=== PATIENT | female | born 1955 | race Caucasian/White ===

== ENCOUNTER 2019-10-06 00:56 | Outpatient (CLI) | payer MEDICARE, OTHER, SELFPAY ==
--- NOTE | 2019-10-06 10:11 | DI.MAMMO_ITS ---
EXAM: MG MAMMO SCREENING CLINICAL HISTORY: SCREENING, DIFFUSE CYSTIC MASTOPATHY OF UNSPECIFIED BREAST, N60.19. TECHNIQUE: Full field digital CC and MLO mammographic images were obtained with 3D tomosynthesis and utilizing computer aided detection (CAD). COMPARISON: . 2014 through 2018 from [facility] in [facility]. FINDINGS: Breast Density - Category C - Heterogeneously dense which decreases the sensitivity of the mammogram. Masses/Architectural Distortion: No suspicious masses are identified. Again noted are multiple bilat eral circumscribed nodules, consistent with cysts.. Microcalcifications: No suspicious pleomorphic-type calcifications are seen. Skin Thickening/Nipple Retraction: None. Axilla: Unremarkable. IMPRESSION: 1. BI-RADS Cat 2 - Benign Findings. No significant interval change with no specific features of bing gnancy noted. 2. Unless there is more urgent need, screening mammography is recommended, as per [employer] guidelines. Breast Density - Category C - Heterogeneously dense. BI-RADS Cat 2 - Benign Findings. A negative radiographic report should not delay biopsy if a dominant or clinically suspicious mass is present. Up to ten percent of cancers are not identified on mammography. A negative report may reinforce clinical impression. Adenosis and dense breasts may obscure an underlying neoplasm. False positive reports average 6 to 10%. Patient will receive a letter notifying them of these results.
== END 2019-10-06 01:16 ==
PROVIDERS: Visit Provider Orthopaedic Surgery
DX: N60.19 Diffuse cystic mastopathy of unspecified breast (principal); N60.11 Diffuse cystic mastopathy of right breast; N60.12 Diffuse cystic mastopathy of left breast; Z12.31 Encounter for screening mammogram for malignant neoplasm of breast
CPT/HCPCS: 77063; 77067

== ENCOUNTER 2019-11-06 01:31 | Outpatient (CLI) | payer MEDICARE, OTHER, SELFPAY ==
--- NOTE | 2019-11-06 14:04 | DI.DEXA_ITS ---
EXAM: XR DEXA BONE DENSITY W/WO SUDHAKAR INDICATION: OTHER DISORDER OF BONE DENSITY AND STRUCTURE, M85.88. COMPARISON: No exams were available for comparison TECHNIQUE: 2D digital imaging was performed. FINDINGS: Lateral view of the spine shows no compression deformities. Evaluation of the left hip shows a total T-score of -1.6 and a Z-score of -0.3. This is consistent w ith osteopenia and an increased fracture risk. Evaluation of the lumbar spine shows a total T-score of -2.0 and a Z-score of -0.1. This is also con sistent with osteopenia and an increased fracture risk. IMPRESSION: Osteopenia of the lumbar spine and left hip.
== END 2019-11-06 01:51 ==
PROVIDERS: Visit Provider Nurse Practitioner Family
DX: M85.88 Other specified disorders of bone density and structure, other site (principal)
CPT/HCPCS: 77080

== ENCOUNTER 2020-07-14 13:45 | Outpatient (REF) | payer MEDICARE, OTHER, SELFPAY ==
[2020-07-16 22:36] LABS: Patient Race White; SARS-CoV-2 RNA Undetected (Undetected); SARS-CoV-2 Specimen Source Nasal
== END 2020-07-14 14:05 ==
LOC: NCHCN 13:45
PROVIDERS: Visit Provider Physician Assistant
DX: Z20.828 Contact with and (suspected) exposure to other viral communicable diseases (principal)
CPT/HCPCS: U0003

== ENCOUNTER 2020-08-26 09:10 | Outpatient (REF) | payer MEDICARE, OTHER, SELFPAY ==
[2020-08-26 18:43] LABS: Anion Gap 7.6 mmol/L (3-11); BUN 15 mg/dL (7-18); CO2 29.4 mmol/L (21.0-32.0); CREATININE 0.98 mg/dL (0.55-1.02); Calculated LDL 172 mg/dL (<100); Chloride 104 mmol/L (98-107); Cholesterol 265 mg/dL (<200); Estimated GFR 56.61 (mL/min/1.73m2); Glucose 106 mg/dL (74-106); HDL Cholesterol 67 mg/dL (40-60); Potassium 4.3 mmol/L (3.5-5.1); Sodium 141 mmol/L (136-145); Triglyceride 131 mg/dL (<150)
[2020-08-26 19:30] LABS: Vitamin D 25 Total 79.5 ng/ml (30-100)
== END 2020-08-26 09:30 ==
LOC: NCHCN 09:10
PROVIDERS: Visit Provider Physician Assistant
DX: E78.5 Hyperlipidemia, unspecified (principal); E55.9 Vitamin D deficiency, unspecified
CPT/HCPCS: 80048; 80061; 82306

== ENCOUNTER 2020-10-19 01:42 | Outpatient (CLI) | payer MEDICARE, OTHER, SELFPAY ==
--- NOTE | 2020-10-19 | DI.MAMMO_ITS ---
EXAM: MG MAMMO SCREENING CLINICAL HISTORY: SCREENING, Z12.39 TECHNIQUE: Bilateral full field digital CC and MLO mammographic images were obtained with 3D tomosyn thesis and utilizing computer aided detection (CAD). COMPARISON: Available for comparison. FINDINGS: Masses/Architectural Distortion: Multiple well-circumscribed nodules are seen in both breasts, consis tent with cysts. Microcalcifications: No suspicious pleomorphic-type are seen. Skin Thickening/Nipple Retraction: None. IMPRESSION: 1. No significant interval change with no specific features of malignancy noted. 2. Unless there is more urgent need, screening mammography is recommended, as per [employer] guidelines. BI-RADS Category 2 - Benign Findings Breast Density - Category C - Heterogeneously dense Breast density category C or D implies that the patient has dense breast tissue. Dense breast tissue is very common and is not abnormal but dense breast tissue can make it harder to find cancer on a ma mmogram. Also, dense breast tissue may increase their breast cancer risk. This information about the result of the mammogram report was provided to the patient to raise their awareness. Use this report when you speak with the patient about their risks for breast cancer, which includes their family hist ory. At that time, you may recommend for more screening tests (Ultrasound or MRI) as they might be us eful based on their risk. A negative radiographic report should not delay biopsy if a dominant or clinically suspicious mass is present. Up to ten percent of cancers are not identified on mammography. A negative report may reinforce clinical impression. Adenosis and dense breasts may obscure an underlying neoplasm. False positive reports average 6 to 10%. Patient will receive a letter notifying them of these results.
== END 2020-10-19 02:02 ==
PROVIDERS: PCP Physician Assistant; Visit Provider Physician Assistant
DX: Z12.31 Encounter for screening mammogram for malignant neoplasm of breast (principal); N60.11 Diffuse cystic mastopathy of right breast; N60.12 Diffuse cystic mastopathy of left breast
CPT/HCPCS: 77063; 77067

== ENCOUNTER 2021-09-27 14:56 | Outpatient (REF) | payer MEDICARE, OTHER, SELFPAY ==
[2021-09-27 19:09] LABS: Anion Gap 8.3 mmol/L (3-11); BUN 12 mg/dL (7-18); CO2 29.7 mmol/L (21.0-32.0); Calcium 9.1 mg/dL (8.5-10.1); Calculated LDL 173 mg/dL (<100); Chloride 103 mmol/L (98-107); Cholesterol 266 mg/dL (<200); Estimated GFR 55.14 (mL/min/1.73m2); Glucose 108 mg/dL (74-106); HDL Cholesterol 64 mg/dL (40-60); Potassium 3.6 mmol/L (3.5-5.1); Sodium 141 mmol/L (136-145); Triglyceride 148 mg/dL (<150)
== END 2021-09-27 14:57 | disposition home or self-care (01) ==
LOC: NCHCN 14:56
PROVIDERS: PCP Physician Assistant; Visit Provider Physician Assistant
DX: E78.5 Hyperlipidemia, unspecified (principal); I10 Essential (primary) hypertension; R30.0 Dysuria
CPT/HCPCS: 80048; 80061; 87086

== ENCOUNTER 2021-11-01 01:05 | Outpatient (CLI) | payer MEDICARE, OTHER, SELFPAY ==
--- NOTE | 2021-11-01 12:18 | DI.MAMMO_ITS ---
Exam(s) MAMMO SCREENING EXAM: MAMMO SCREENING CLINICAL HISTORY: SCREENING, Z12.39. TECHNIQUE: Bilateral full field digital CC and MLO mammographic images were obtained with 3D tomosyn thesis and utilizing computer aided detection (CAD). COMPARISON: Prior mammograms were reviewed, the most recent being October 2020. FINDINGS: There are multiple well-defined nodules in both breasts, previously. One of these in the right breas t has increased in size, presently measuring 2 by 1.5 cm. Benign microcalcifications are noted both breasts. No malignant-appearing microcalcification. There is no significant architectural distortion nor skin thickening-retraction. IMPRESSION: Multiple bilateral relatively stable nodules. One of the nodules in the right breast has increased i n size. Ultrasound is recommended to ensure that it remains a simple cyst. BI-RADS Category 0 - Assessment Incomplete: Need additional imaging evaluation Breast Density - Category C - Heterogeneously dense Breast density Category C or D implies that the patient has dense breast tissue. Dense breast tissue can make it harder to find cancer on a mammogram. Dense breast tissue is also associated with an incr eased risk of breast cancer. This information about the result of the mammogram report was provided to the patient to raise their awareness. Use this report when you speak with the patient about their risks for breast cancer, which includes their family history. At that time, you may recommend additional screening tests (Ultrasoun d or MRI) as these tests may add significant information. A negative radiographic report should not delay biopsy if a dominant or clinically suspicious mass is present. Up to ten percent of cancers are not identified on mammography. A negative report may reinforce clinical impression. Adenosis and dense breasts may obscure an underlying neoplasm. False positive reports average 6 to 10%. Patient will receive a letter notifying them of these results.
== END 2021-11-01 01:25 ==
PROVIDERS: PCP Physician Assistant; Visit Provider Physician Assistant
DX: Z12.31 Encounter for screening mammogram for malignant neoplasm of breast (principal); R92.8 Other abnormal and inconclusive findings on diagnostic imaging of breast
CPT/HCPCS: 77063; 77067

== ENCOUNTER 2021-11-07 02:10 | Outpatient (CLI) | payer MEDICARE, OTHER, SELFPAY ==
--- NOTE | 2021-11-07 11:00 | DI.US_ITS ---
Exam(s) US BREAST RT LIMITED EXAM: US BREAST RT LIMITED CLINICAL HISTORY: INCREASED SIZE OF NODULE, RT BREAST, R92.8. TECHNIQUE: Limited ultrasound of the right breast was performed. COMPARISON: Prior mammograms were reviewed. Most recent mammogram was 11/01/2021 FINDINGS: Multiple cysts and microcysts. Largest is at 10 o'clock position measures 1.6 x 1.2 cm, this correspond to finding on the mammogram. There are no solid internal components in this dominant cyst nor in the other surrounding smaller c ysts. IMPRESSION: Nodule described in the right breast on the recent mammogram corresponds to a cyst which has increase d in size from previous, presently measuring 16 x 12 millimeters. Nevertheless, this does not contai n solid components. Appropriate follow-up is to keep this patient on a yearly mammogram schedule, with earlier imaging if a self detected breast changes noted. BI-RADS Category 2 - Benign Findings Breast Density - Category C - Heterogeneously dense Breast density Category C or D implies that the patient has dense breast tissue. Dense breast tissue can make it harder to find cancer on a mammogram. Dense breast tissue is also associated with an incr eased risk of breast cancer. This information about the result of the mammogram report was provided to the patient to raise their awareness. Use this report when you speak with the patient about their risks for breast cancer, which includes their family history. At that time, you may recommend additional screening tests (Ultrasoun d or MRI) as these tests may add significant information. A negative radiographic report should not delay biopsy if a dominant or clinically suspicious mass is present. Up to ten percent of cancers are not identified on mammography. A negative report may reinforce clinical impression. Adenosis and dense breasts may obscure an underlying neoplasm. False positive reports average 6 to 10%. Patient will receive a letter notifying them of these results.
== END 2021-11-07 02:30 ==
PROVIDERS: PCP Physician Assistant; Visit Provider Physician Assistant
DX: R92.8 Other abnormal and inconclusive findings on diagnostic imaging of breast (principal)
CPT/HCPCS: 76642

== ENCOUNTER 2022-05-22 18:04 | Outpatient (REF) | payer MEDICARE, OTHER, SELFPAY ==
[2022-05-22 15:04] LABS: ALT 16 U/L (14-59); AST 14 U/L (15-37); Albumin 3.7 g/dL (3.4-5.0); Alkaline Phosphatase 125 U/L (46-116); Anion Gap 6.9 mmol/L (3-11); BUN 12 mg/dL (7-18); Bilirubin, Total 0.3 mg/dL (0.2-1.0); CO2 31.1 mmol/L (21.0-32.0); CREATININE 0.9 mg/dL (0.55-1.02); Calcium 9.1 mg/dL (8.5-10.1); Chloride 102 mmol/L (98-107); Glucose 112 mg/dL (74-106); Potassium 3.9 mmol/L (3.5-5.1); Sodium 140 mmol/L (136-145)
== END 2022-05-22 18:05 | disposition home or self-care (01) ==
LOC: LBN 18:04
PROVIDERS: PCP Physician Assistant; Visit Provider Nurse Practitioner Family
DX: U07.1 COVID-19 (principal)
CPT/HCPCS: 80053

== ENCOUNTER 2022-12-26 01:32 | Outpatient (CLI) | payer MEDICARE, OTHER, SELFPAY ==
--- NOTE | 2022-12-26 07:45 | DI.MAMMO_ITS ---
Exam(s) MAMMO SCREENING EXAM: MAMMO SCREENING CLINICAL HISTORY: SCREENING, Z12.39 TECHNIQUE: Mammograms were interpreted according to the usual protocol including computer analysis w [employer] CAD system, tomosynthesis and C-view imaging. COMPARISON: 2014 through 2021 FINDINGS: The breasts are composed of heterogeneously dense fibroglandular densities, Breast Density category C . No suspicious masses or suspicious microcalcifications are seen. Multiple bilateral circumscribed no dules are again noted. Multiple cysts noted up on prior ultrasound. No skin thickening or abnormal axillary lymph nodes are seen. There has been no significant change from prior exams. IMPRESSION: BI-RADS Cat 2 - Benign Findings Yearly screening mammography is recommended. Breast Density Category C, heterogeneously Dense. The mammogram demonstrates the patient's breast tissue is dense. Dense breast tissue is very common a nd is not abnormal but dense breast tissue can make it harder to find cancer on a mammogram. Also, de nse breast tissue may increase breast cancer risk. This information about the result of the mammogram report was provided to the patient to raise their awareness. Use this report when you speak with the patient about their risks for breast cancer, which includes their family history. At that time, you may recommend additional screening tests (Ultrasound or MRI) as they might be useful based on their r isk. A negative radiographic report should not delay biopsy if a dominant or clinically suspicious mass is present. Up to ten percent of cancers are not identified on mammography. A negative report may reinforce clinical impression. Adenosis and dense breasts may obscure an underlying neoplasm. False positive reports average 6 to 10%.
== END 2022-12-26 01:52 ==
LOC: DI 01:33
PROVIDERS: PCP Physician Assistant; Visit Provider Physician Assistant
DX: Z12.31 Encounter for screening mammogram for malignant neoplasm of breast (principal)
CPT/HCPCS: 77063; 77067

== ENCOUNTER → 2022-12-28 09:49 | Outpatient (BNVA) | payer MEDICARE, OTHER, SELFPAY | PROVIDERS: PCP Physician Assistant; Referring Provider Physician Assistant; Visit Provider Surgery | DX: Z12.11 Encounter for screening for malignant neoplasm of colon (principal) ==

== ENCOUNTER 2023-01-11 11:28 | Day surgery (SDC) | payer MEDICARE, OTHER, SELFPAY ==
--- NOTE | 2023-01-10 21:10 | W.PM.DSUDISC ---
Date of service: 01/11/23 Time of Service: 14:06 Discharge Plan Disposition Patient Disposition: Home Condition: Good Discharge Details Reason For Visit: Colonoscopy Attending Provider: David Gunn Primary Care Provider: Michael Flores Home Meds and New Rx's Prescriptions: Continued escitalopram oxalate 10 mg tablet 10 mg PO DAILY cholecalciferol (vitamin D3) 25 mcg (1,000 unit) capsule 25 mcg PO DAILY prochlorperazine maleate [Compazine] 5 mg tablet 5 mg PO Q6H PRN PRN (Reason: nausea and vomiting) Qty: 7 0RF bupropion HCl 300 mg tablet extended release 24 hr 300 mg PO QAM Discontinued bisacodyl [Dulcolax (bisacodyl)] 5 mg tablet,delayed release (DR/EC) 5 mg PO ONCE Qty: 4 0RF Rx Instructions: Take according to provider's instructions for colonoscopy prep. polyethylene glycol 3350 17 gram/dose powder 17 g PO ONCE Qty: 238 0RF Rx Instructions: To be taken as directed by prescriber's office for colonoscopy prep. Discharge Instructions Additional Instructions: Valerie, we were able to complete your colonoscopy today. The quality of the preparation was very good. I am confident that we had good visualization of the lining of your large intestine. I did see some signs of an internal hemorrhoid. Otherwise, the colonoscopy was normal. I did not see any signs of tumors or polyps. Traditional teaching with a normal colonoscopy is to repeat it again in 10 years. However, you should know that there is some debate among physicians about the utility of screening colonoscopies among patients in the 75-85 year range. Certainly, if you are feeling in good health, and are open to another colonoscopy, I will be more than happy to provide that service. 1. If tolerated, consume a soft, low fiber diet for 1-2 days. 2[address] Do not drive, drink alcohol, operate machinery, make critical decisions, or do activities that require coordination or balance for 24 hours. 3. Because air was put into your colon during the procedure, expelling air from your rectum (passing gas or farting) is normal. 4. You may not have a bowel movement for 1-3 days because of the colonoscopy prep. This is normal. 5. Go directly to the emergency room if you notice any of the following: Develop chills (warm to touch), or if you have a thermometer and your temperature is above 101 Difficulty breathing or difficultly swallowing Persistent vomiting Severe abdominal pain, other than gas cramps Severe chest pain Black, tarry stools Any bleeding ? exceeding one tablespoon 6. Call your physician if the site where your intravenous was started becomes red, swollen, painful, and warm to touch. 7. Your physician has reviewed your pre-procedure medications. Please continue to take those medications as previously ordered. You will be given specific information/education regarding any changes to your medications before leaving. Activity:: Activity as Tolerated Diet:: As Tolerated Discharge Orders Discharge Orders: Discharge Order (Routine); Ordered 01/10/23 Ordered By: David Gunn DS: Diagnosis Discharge Diagnosis (1) Screening for colon cancer: Status: Acute Asessment and Plan: I did not see any signs of polyps or tumors. Based on today's findings, I recommend your next colonoscopy in 10 years.
--- NOTE | 2023-01-10 21:12 | W.COLOREPORT ---
Date of service: 01/11/23 Time of Service: 14:08 Colonoscopy Report Date of procedure: 01/11/23 Pre-op diagnosis general: Screening colonoscopy Post-op diagnosis procedure note: same Procedure: Colonoscopy Surgeon: David Gunn Anesthesia Type: General:No Airway Estimated blood loss (mL): 0 Pathology: none sent Complications: None Disposition: same day Indications: Yisel is a 68 year old woman who was found to have colon polyps on a previous screning colonoscopy. She is following up for her next screen. Prep: Miralax/Dulcolax Procedure Start Time: 13:37 Procedure End Time: 13:57 Retraction Time: 14 Findings: Normal screening colonoscopy Procedure Description: After the induction of monitored anesthetic care, and with the patient in left lateral decubitus position, I began by performing an external anorectal exam.? Perineum and skin were normal, as was the anal verge.? There was mild evidence of external hemorrhoids in the form of fibrosed skin tags.? Next, I performed a digital rectal exam.? I did not appreciate any abnormal findings.? Next, I advanced a colonoscope into the rectal vault.? I performed retroflexion.? There is a grade 1 internal hemorrhoid.? Using insufflation, I then advanced the colonoscope beyond the rectal folds and into the sigmoid colon before advancing towards the cecum.? The quality of the prep was adequate.? The scope was noted to be in the cecum by identification of the ileocecal valve and appendiceal orifice.? I then began withdrawing the colonoscope using repeated irrigation as necessary for full evaluation of the colonic mucosa. ?Once the scope was withdrawn to the level of the rectum, great care was taken to examine portions of the rectal folds.? Finally, the scope was withdrawn and the patient was brought to the postanesthesia care unit as the anesthetic wore off. ?The findings and instructions were shared with the patient prior to discharge.
[2023-01-11] VITALS (8 sets, daily range): BP systolic 132–184; BP diastolic 70–99; PULSE 72–86; RESP 14–19; TEMP 36.3–37; O2SAT 94–98; BMI 31.4
[2023-01-11] MEDS: Lactated Ringers 1,000 ML 80 ML IV (12:20)
--- NOTE | 2023-01-11 13:06 | W.ANESPRE ---
General Info Date of Service Date Performed: 01/11/23 Height: 5 ft 1 in Weight: 75.3 kg Body Mass Index (BMI): 31.4 Surgical Procedure: Operation Date: 01/11/23 12:05 Proposed Procedure Side Surgeon renate Gunn MD Meds Allergies and Home Medications Allergies Allergy/AdvReac Type Severity Reaction Status Date / Time Sulfa (Sulfonamide Allergy Mild Skin Rash Verified 01/11/23 12:26 Antibiotics) Home Medication Medication Instructions Recorded bupropion HCl 300 mg 24 hr tablet, 300 mg PO QAM 01/27/22 extended release cholecalciferol (vitamin D3) 25 25 mcg PO DAILY 12/28/22 mcg (1,000 unit) capsule escitalopram oxalate 10 mg tablet 10 mg PO DAILY 12/28/22 prochlorperazine maleate 5 mg 5 mg PO Q6H PRN PRN nausea and 12/28/22 tablet (Compazine) vomiting #7 tabs Current Visit Medications: Current Medications Generic Name Dose Route Start Last Admin Trade Name Freq PRN Reason Stop Dose Admin Acetaminophen/Butalbital/Caffeine 0 tab 01/11/23 06:00 Butalbital/Acetaminophen/Caffeine 50/325/40 Tab PO 01/11/23 16:00 Q6H PRN PRN HEADACHE Hyoscyamine Sulfate 0.125 mg 01/10/23 21:13 Hyoscyamine 0.125 Mg Sl/Oral/Chew SL DIRECTED PRN Ringer's Solution 1,000 mls @ 80 mls/hr 01/11/23 06:00 01/11/23 12:20 IV 02/09/23 23:59 80 mls/hr INFUSION GEMINI Administration IV Miscellaneous Supplies 1 each 01/11/23 06:00 Iv Access IV 02/09/23 23:59 DIRECTED GEMINI Ondansetron HCl 4 mg 01/11/23 06:00 Ondansetron 4 Mg/2 Ml Vial IVP 01/11/23 16:00 PRN PRN Ondansetron HCl 4 mg 01/10/23 21:13 Ondansetron 4 Mg/2 Ml Vial IVP Q4H PRN PRN Nausea / Vomiting Sodium Chloride 0 ml 01/11/23 06:00 Normal Saline Flush 10 Ml Syr IV 02/09/23 23:59 PRN PRN Sodium Chloride 0 ml 01/11/23 06:00 Normal Saline 10 Ml Vial IJ 02/09/23 23:59 DIRECTED PRN Sterile Water 0 ml 01/11/23 06:00 Water,Injection,Sterile 10 Ml Vial IJ 02/09/23 23:59 DIRECTED PRN PFSH Active Problems Active Problems: Problem Status Onset Code Sensorineural hearing loss of both ears H90.3 Screening for colon cancer Z12.11 Internal hemorrhoids without complication K64.8 Diverticular disease of large intestine K57.30 Medical History Medical History Adenomatous polyps Essential hypertension Hyperlipidemia Melanoma Osteopenia Vitamin deficiency Medical History Comments:: Per pt. states I tend to stop breathing while under anesthesia, I was told that I tend to want to let the machine breathe for me, and I also get migraines Surgical History Surgical History (Updated 01/11/23 @ 12:28 by La Reis RN) H/O lumpectomy H/O melanoma excision History of colonoscopy History of dilatation and curettage Tobacco Smoking/Tobacco Use Status: Never Alcohol Alcohol Intake: current Alcohol intake frequency: a few times a month Alcohol type: wine Substance Use Substance use: Never Substance use type: does not use Vital Signs and Lab Results Vital Signs Most Recent Vital Signs in EMR: Most Recent Vital Signs Temp Pulse Resp BP Pulse Ox 36.3 C L 86 16 165/89 H 97 01/11/23 12:05 01/11/23 12:05 01/11/23 12:05 01/11/23 12:05 01/11/23 12:05 Lab Results Blood Type / Crossmatch: No Data to Display Complete Blood Count: No Data to Display Complete Metabolic Panel: No Data to Display Liver Function Panel: No Data to Display Coagulation Panel: No Data to Display Cardiac Panel: No Data to Display Arterial Blood Gas: No Data to Display Venous Blood Gas: No Data to Display Pancreas Panel: No Data to Display Thyroid Panel: No Data to Display Infectious Disease: No Data to Display Blood Cultures: No Data to Display Toxicology Panel: No Data to Display Anesthesia Assessment and Plan Anesthesia History Personal History: Other Family History: No Family History of Anesthesia Complications Exercise Tolerance Exercise Tolerance: Metabolic Equivalents>4 Pertinent Negatives Pertinent Negatives: No Symptoms of GERD, No Major Cardiovascular Symptoms or Complaints and No Major Pulmonary Symptoms or Complaints Cardiac & Pulmonary Exam Cardiac Exam: Normal S1/S2 Heart Sounds Pulmonary Exam: Clear Bilateral Breath Sounds Implantable Cardiac Device Does patient have a Pacemaker or an ICD?: No Airway Exam Known Difficult Airway: No Mallampati Class: 2 Mouth Opening: Normal (> 3cm) Thyromental Distance: Greater than 3 cm Neck Range of Motion: Full ROM Neck Circumference: Normal Teeth Condition: Normal Dentition ASA Classification ASA Score: ASA 2 Emergency Case?: No NPO Status NPO Status: NPO Clears >2 hours, Solids >8 hours Anesthesia Plan Resuscitation Status: Full Code Anesthesia Technique: General Anesthesia Airway Planned: Natural Airway Monitors Used: Standard Monitors
--- NOTE | 2023-01-11 15:57 | W.ANESPOSTOP ---
Postoperative Evaluation Date, Time and Location Date Performed: 01/11/23 Time Performed: 15:05 Patient Location: Day Surgery Unit Vital Signs Most Recent Imported Vital Signs: Most Recent Vital Signs Temp Pulse Resp BP Pulse Ox 36.5 C 76 18 148/90 H 98 01/11/23 15:02 01/11/23 15:02 01/11/23 15:02 01/11/23 15:02 01/11/23 14:41 Pain Score Most Recent Pain Score: Most Recent Pain Score Pain Level 0 01/11/23 15:02 Assessment Mental Status: Awake (Alert & Oriented to Patient Baseline) Airway and Respiratory Function: Patent airway with normal (patient baseline) respiratory exam (Upon auscultation in PACU, clear bilaterally) Cardiovascular Function: Hemodynamically Stable Hydration Status: Adequately Hydrated Nausea & Vomiting: No Nausea or Vomiting Pain: Pt. Denies Any Pain Peripheral Nerve Block: Patient did not receive a nerve block Teaching Patient Teaching: Advised to seek followup for the following concerns (See explanation) (Any new onset of SOB or fever) Concerns: Other
== END 2023-01-11 15:21 | disposition home or self-care (01) ==
PROVIDERS: PCP Physician Assistant; Visit Provider Surgery
PROC: 0DJD8ZZ Inspection of Lower Intestinal Tract, Via Natural or Artificial Opening Endoscopic (ICD-10-PCS; CPT 45378; principal; 2023-01-11 12:00)
DX: Z12.11 Encounter for screening for malignant neoplasm of colon (principal); Z86.010 Personal history of colon polyps
CPT/HCPCS: G0105

== ENCOUNTER 2023-03-05 10:17 | Outpatient (CLI) | payer MEDICARE, OTHER, SELFPAY ==
--- NOTE | 2023-03-05 | DI.RAD_ITS ---
Exam(s) XR KNEE LT 3V AP,LAT,JC EXAM: XR KNEE LT 3V AP,LAT,JC CLINICAL HISTORY: LEFT KNEE JOINT PAIN M25.562. TECHNIQUE: 2D digital imaging was performed of the left knee. Three images were obtained. AP, late ral and PA tunnel views were obtained. COMPARISON: No exams were available for comparison FINDINGS: BONES: No acute fracture is present. No bony destructive lesion is seen. JOINTS: There are marked degenerative changes of the left knee characterized by joint space narrowing and periarticular spurring. The findings are most marked in the medial femoral tibial joint space. There is a small joint effusion. SOFT TISSUE: Normal. IMPRESSION: Osteoarthritis of the left knee. DATA REPOSITORY: RADIATION DOSE DELIVERED:
== END 2023-03-05 10:37 ==
LOC: DI 10:18
PROVIDERS: PCP Physician Assistant; Visit Provider Physician Assistant
DX: M17.12 Unilateral primary osteoarthritis, left knee (principal)
CPT/HCPCS: 73562

== ENCOUNTER 2023-04-12 11:24 | Emergency (ER) | payer MEDICARE, OTHER, SELFPAY ==
[2023-04-12 11:32] VITALS: BP 167/79; PULSE 70; RESP 18; TEMP 36.8; O2SAT 100
--- NOTE | 2023-04-12 13:00 | DI.RAD_ITS ---
Exam(s) XR WRIST LT COMPLETE EXAM: XR WRIST LT COMPLETE CLINICAL HISTORY: fall, pain. TECHNIQUE: 2D digital imaging was performed. Three views. COMPARISON: No exams were available for comparison FINDINGS: BONES: Fracture seen extending transversely through the distal radial metaphysis. Additional longitu dinally oriented fracture through the medial aspect of the distal radius with no significant separati on at the articular surface. There is slight dorsal angulation and mild impaction. Mildly displaced ulnar styloid fracture. No bony destructive lesion is seen. JOINTS: The carpal bones are normally aligned. Advanced degenerative changes with adjacent bony fra gments and prominent spurring at the 1st carpal metacarpal joint. SOFT TISSUE: Swelling around wrist IMPRESSION: Intra-articular fracture of the distal radius and ulnar styloid fracture. DATA REPOSITORY: RADIATION DOSE DELIVERED:
--- NOTE | 2023-04-12 13:00 | DI.RAD_ITS ---
Exam(s) XR FOREARM LT EXAM: XR FOREARM LT CLINICAL HISTORY: fall, pain. TECHNIQUE: 2D digital imaging was performed. Two views. COMPARISON: CR XR WRIST LT COMPLETE from 04/12/2023 FINDINGS: BONES: Distal radial and ulnar styloid fractures. No additional fractures are seen more proximally i n the forearm. No bony destructive lesion is seen. Visualized portion of elbow joint is unremarkable . SOFT TISSUE: Normal. IMPRESSION: Distal radial and ulnar styloid fractures. DATA REPOSITORY: RADIATION DOSE DELIVERED:
--- NOTE | 2023-04-12 13:16 | ED.GENADUL_ITS ---
Discharge Plan Disposition Patient Disposition: Home Discharge Details Chief Complaint: Orthopedic Clinical Impression: Distal radius fracture, Fracture of ulnar styloid Primary Care Provider: Michael Flores ED Provider: Guanakito Bhatt Home Meds and New Rx's Prescriptions: No Action escitalopram oxalate 10 mg tablet 10 mg PO DAILY cholecalciferol (vitamin D3) 25 mcg (1,000 unit) capsule 25 mcg PO DAILY prochlorperazine maleate [Compazine] 5 mg tablet 5 mg PO Q6H PRN PRN (Reason: nausea and vomiting) Qty: 7 0RF bupropion HCl 300 mg tablet extended release 24 hr 300 mg PO QAM Discharge Instructions Instructions: Wrist Fracture in Adults (ED) Additional Instructions: Please follow-up closely with orthopedic surgery. Please return to the emergency department for any worsening symptoms Referrals: Ivan Holguin MD [ [facility] STAFF PHYSICIAN] - 2 days Medical Decision Making 68-year-old female presents after fall from standing onto left upper extremity, pain and deformity to distal left upper extremity concerning for distal radius/ulnar fracture. Neurovascular exam of limb intact. No other signs of trauma. Will obtain x-ray, will provide analgesia anti-inflammatory. Likely splinting and Ortho follow-up 14: 50-year-old patient resting comfortably tolerated sugar-tong splint. Will be given close follow-up with orthopedic surgery. Home care instructions and return precautions given HPI General Date/Time Provider Initiated Documentation: 04/12/23 13:01 . HPI Narrative: 68-year-old female presents after fall from standing tripped over her dog, fell onto her left arm, pain to left forearm and wrist Related Data Home Medications Medication Instructions Recorded Confirmed bupropion HCl 300 mg 24 hr tablet, 300 mg PO QAM 01/27/22 01/11/23 extended release cholecalciferol (vitamin D3) 25 25 mcg PO DAILY 12/28/22 01/11/23 mcg (1,000 unit) capsule escitalopram oxalate 10 mg tablet 10 mg PO DAILY 12/28/22 01/11/23 prochlorperazine maleate 5 mg 5 mg PO Q6H PRN PRN nausea and 12/28/22 01/10/23 tablet (Compazine) vomiting #7 tabs Previous Rx's Medication Instructions Recorded prochlorperazine maleate 5 mg 5 mg PO Q6H PRN PRN nausea and 12/28/22 tablet (Compazine) vomiting #7 tabs Allergies Allergy/AdvReac Type Severity Reaction Status Date / Time Sulfa (Sulfonamide Allergy Mild Skin Rash Verified 01/11/23 12:26 Antibiotics) General Stated Complaint: Orthopedic HARJIT: 4 Review of Systems Narrative: Review of Systems Constitutional: negative Eyes: negative ENT: negative Cardiovascular: negative Respiratory: negative Gastrointestinal: negative : negative Musculoskeletal: Arm pain Skin: negative Neurologic: negative Psych: negative PFSH All Active Problems (Updated 04/12/23 @ 14:54 by Guanakito Bhatt MD) Sensorineural hearing loss of both ears (Acute) Screening for colon cancer (Acute) Internal hemorrhoids without complication (Acute) Diverticular disease of large intestine (Acute) Entire colon affected/pandiverticular disease Distal radius fracture (Acute) Fracture of ulnar styloid (Acute) Medical History (Updated 04/12/23 @ 14:54 by Guanakito Bhatt MD) Adenomatous polyps Essential hypertension Hyperlipidemia Melanoma Osteopenia Vitamin deficiency Surgical History (Updated 01/11/23 @ 12:28 by La Reis RN) H/O lumpectomy H/O melanoma excision History of colonoscopy History of dilatation and curettage Social History Smoking/Tobacco Use Status: Never Smoking risk assessment performed?: Yes Alcohol Intake: current Alcohol Intake frequency: a few times a month Alcohol type: wine Drug use: Never Substance use type: does not use Do you feel safe at home: Yes Do you feel safe in your relationship?: Yes Exam Narrative Exam Narrative: Physical Examination General: alert, awake, cooperative, resting comfortably, no acute distress Extremities: Deformity to distal radius/ulnar region, radial pulse intact, median radial ulnar nerve distribution sensory exam intact. Soft compartments. Warm well-perfused limb. Range of motion at wrist limited by discomfort. Psych: Appropriate mood and affect Course Vital Signs Vital signs: Vital Signs Temperature 36.8 C 04/12/23 11:32 Pulse 70 04/12/23 11:32 Respiratory Rate 18 04/12/23 11:32 Blood Pressure 167/79 H 04/12/23 11:32 Pulse Oximetry 100 04/12/23 11:32 Temperature 36.8 C 04/12/23 11:32 Temperature Source Oral 04/12/23 11:32 Pulse 70 04/12/23 11:32 Respiratory Rate 18 04/12/23 11:32 Respiratory Effort Normal, Non-Labored 04/12/23 11:34 Blood Pressure 167/79 H 04/12/23 11:32 Blood Pressure Position Sitting 04/12/23 11:32 Pulse Oximetry 100 04/12/23 11:32 Oxygen Delivery Method Room Air 04/12/23 11:32 Oxygen Flow Rate 0 04/12/23 11:32 Pain Level 4 04/12/23 12:49 Procedures Orthopedic Splinting/Casting Injury #1: Side: left Upper Extremity Injury Location: wrist Upper Extremity Immobilizer: sugartong splint
[2023-04-12] MEDS: Acetaminophen 325 MG TAB 650 MG PO (13:20)
--- NOTE | 2023-04-12 15:11 | NUR.NOTE ---
Nursing Note: Referral faxed to [facility] for wrist fx, sugar tong splint/ to be seen either Sun, Sun, or per Dr Keller.
== END 2023-04-12 15:11 | disposition home or self-care (01) ==
PROVIDERS: Emergency Provider Emergency Medicine; PCP Physician Assistant
DX: S52.502A Unspecified fracture of the lower end of left radius, initial encounter for closed fracture (principal); S52.612A Displaced fracture of left ulna styloid process, initial encounter for closed fracture; W01.0XXA Fall on same level from slipping, tripping and stumbling without subsequent striking against object, initial encounter
CPT/HCPCS: 29125; 99283; 73090; 73110

== ENCOUNTER 2023-04-19 15:05 | Outpatient (CLI) | payer MEDICARE, OTHER, SELFPAY ==
--- NOTE | 2023-04-19 11:15 | DI.RAD_ITS ---
Exam(s) XR WRIST LT LIMITED EXAM: XR WRIST LT LIMITED CLINICAL HISTORY: L WRIST FX. TECHNIQUE: 2D digital imaging was performed. Three views. COMPARISON: CR XR WRIST LT COMPLETE from 04/12/2023 FINDINGS: There is a splint which somewhat obscures the bony detail. The distal radial fracture is visible an d shows no definite change in alignment given differences in projection. Ulnar styloid fractures unc hanged. Degenerative changes at the wrist are again noted. DATA REPOSITORY: RADIATION DOSE DELIVERED:
== END 2023-04-19 15:06 | disposition home or self-care (01) ==
LOC: DIORS 15:05
PROVIDERS: PCP Physician Assistant; Referring Provider Physician Assistant; Visit Provider Physician Assistant
DX: S52.502A Unspecified fracture of the lower end of left radius, initial encounter for closed fracture; W19.XXXA Unspecified fall, initial encounter
CPT/HCPCS: 99203; 73100

== ENCOUNTER 2023-04-23 13:12 | Outpatient (REF) | payer MEDICARE, OTHER, SELFPAY ==
[2023-04-23 15:42] LABS: BUN 16 mg/dL (7-18); CREATININE 0.9 mg/dL (0.55-1.02); Calculated LDL 135 mg/dL (<100); Chloride 106 mmol/L (98-107); Cholesterol 221 mg/dL (<200); Estimated GFR 68.77 (mL/min/1.73m2); Glucose 107 mg/dL (74-106); HDL Cholesterol 60 mg/dL (40-60); Potassium 3.7 mmol/L (3.5-5.1); Sodium 143 mmol/L (136-145); Triglyceride 133 mg/dL (<150)
[2023-04-23 16:11] LABS: Hemoglobin A1C 5.6 % (<5.7)
== END 2023-04-23 13:13 | disposition home or self-care (01) ==
LOC: NCHCN 13:12
PROVIDERS: PCP Physician Assistant; Visit Provider Physician Assistant
DX: E78.5 Hyperlipidemia, unspecified (principal); R73.9 Hyperglycemia, unspecified
CPT/HCPCS: 80048; 80061; 83036

== ENCOUNTER 2023-04-26 14:23 | Outpatient (CLI) | payer MEDICARE, OTHER, SELFPAY ==
--- NOTE | 2023-04-26 14:21 | DI.RAD_ITS ---
Exam(s) XR WRIST LT LIMITED EXAM: XR WRIST LT LIMITED CLINICAL HISTORY: F/U FRACTURE. TECHNIQUE: 2D digital imaging was performed. COMPARISON: CR XR WRIST LT LIMITED from 04/19/2023 FINDINGS: 3 views Cast material is been removed. Healing impacted fracture of the distal radius again noted as is the fracture of the base of the ulna r styloid. There is no carpal dislocation. Scapholunate distance is not increased. Degenerative ch anges at the 1st carpometacarpal joint and triscaphe 4 aid joint again noted. IMPRESSION: DATA REPOSITORY: RADIATION DOSE DELIVERED:
== END 2023-04-26 14:24 | disposition home or self-care (01) ==
LOC: DIORS 14:24
PROVIDERS: PCP Physician Assistant; Referring Provider Physician Assistant; Visit Provider Physician Assistant
DX: S52.502D Unspecified fracture of the lower end of left radius, subsequent encounter for closed fracture with routine healing; S52.613D Displaced fracture of unspecified ulna styloid process, subsequent encounter for closed fracture with routine healing; X58.XXXD Exposure to other specified factors, subsequent encounter
CPT/HCPCS: 99213; 73100

== ENCOUNTER 2023-05-03 11:12 | Outpatient (CLI) | payer MEDICARE, OTHER, SELFPAY ==
--- NOTE | 2023-05-03 11:00 | DI.RAD_ITS ---
Exam(s) XR WRIST LT COMPLETE EXAM: XR WRIST LT COMPLETE CLINICAL HISTORY: F/U L WRIST FX. TECHNIQUE: 2D digital imaging was performed of the left wrist. Four images were obtained. PA, obli que and lateral views were obtained. COMPARISON: CR XR WRIST LT LIMITED from 04/26/2023 FINDINGS: BONES: There has been no change in alignment of the impacted comminuted distal radial fracture with a mildly displaced ulnar styloid process fracture. No bony destructive lesion is seen. JOINTS: The carpal bones are normally aligned. Marked degenerative changes are again seen at the 1st CMC joint. SOFT TISSUE: Normal. IMPRESSION: Stable distal radial and ulnar fractures. DATA REPOSITORY: RADIATION DOSE DELIVERED:
== END 2023-05-03 11:13 | disposition home or self-care (01) ==
LOC: DIORS 11:13
PROVIDERS: PCP Physician Assistant; Referring Provider Physician Assistant; Visit Provider Physician Assistant
DX: S52.502D Unspecified fracture of the lower end of left radius, subsequent encounter for closed fracture with routine healing (principal); W54.1XXD Struck by dog, subsequent encounter
CPT/HCPCS: 99213; 73110

== ENCOUNTER 2023-05-09 02:55 | Outpatient (CLI) | payer MEDICARE, OTHER, SELFPAY ==
--- NOTE | 2023-05-09 06:00 | DI.CT_ITS ---
Exam(s) CT UPPER EXTREMITY LT WO EXAM: CT UPPER EXTREMITY LT WO CLINICAL HISTORY: PAIN, ?SURGICAL PLANNING,fx ulnar styloid and lt distal radius,s52.613a,. TECHNIQUE: Imaging Protocol: Axial computed tomography images with coronal and sagittal reformatted images were created and reviewed. COMPARISON: CR XR WRIST LT COMPLETE from 05/03/2023 FINDINGS: Bones: There is a mildly distracted fracture of the ulnar styloid process. There is a comminuted in tra-articular fracture involving the distal radius. The fracture is impacted. There is mild dorsal angulation of the fracture noted. No significant callus formation is seen about the fracture site. There are degenerative changes seen at the 1st carpometacarpal joint characterized by joint space richardson rowing and osteophytes. Subchondral sclerosis is noted. No cellulitic or osteomyelitic changes are identified. There are well corticated osseous densities seen adjacent to the 1st CMC joint which alan ear old. Benign cystic changes are seen in the scaphoid and lunate bones. Soft Tissues: There is mild edema seen in the soft tissues around the wrist. IMPRESSION: 1. Comminuted, impacted intra-articular fracture involving the distal radius. There is mild dorsal a ngulation. 2. Mildly distracted ulnar styloid process fracture. RADIATION DOSE DELIVERED: Total DLP Total DLP DATA REPOSITORY: All CT scans at this facility are submitted to the National Radiology Data Registry (NRDR) Dose Index Registry (DIR) with the [employer] (ACR). RADIATION OPTIMIZATION: All CT scans at this facility use at least one of these dose optimization te chniques: automated exposure control; mA and/or kV adjustment per patient size (includes targeted exa ms where dose is matched to clinical indication); or iterative reconstruction.
== END 2023-05-09 03:15 ==
LOC: DI 02:56
PROVIDERS: PCP Physician Assistant; Visit Provider Student in an Organized Health Care Education/Training Program
DX: S52.352A Displaced comminuted fracture of shaft of radius, left arm, initial encounter for closed fracture (principal); X58.XXXA Exposure to other specified factors, initial encounter
CPT/HCPCS: 73200

== ENCOUNTER 2023-05-18 08:25 | Outpatient (CLI) | payer MEDICARE, OTHER, SELFPAY ==
--- NOTE | 2023-05-18 08:27 | DI.RAD_ITS ---
Exam(s) XR WRIST LT COMPLETE EXAM: XR WRIST LT COMPLETE CLINICAL HISTORY: left wrist fx. TECHNIQUE: 2D digital imaging was performed. COMPARISON: CR XR WRIST LT COMPLETE from 05/03/[address] UPPER EXTREMITY LT WO from 05/09/2023 FINDINGS: 3 views Again noted is the impacted comminuted fracture of the distal radius mildly displaced ulnar styloid f racture. Appearance is stable from 05/03/2023. Fracture line still faintly evident. Mild positive ulnar vari ance again noted. Scaphoid and scapholunate distance normal. Degenerative changes are again noted a t the 1st carpometacarpal joint level. IMPRESSION: Stable appearance when compared to 05/03/2023. DATA REPOSITORY: RADIATION DOSE DELIVERED:
== END 2023-05-18 08:26 | disposition home or self-care (01) ==
LOC: DIORS 08:25
PROVIDERS: PCP Physician Assistant; Referring Provider Physician Assistant; Visit Provider Student in an Organized Health Care Education/Training Program
DX: S52.502D Unspecified fracture of the lower end of left radius, subsequent encounter for closed fracture with routine healing; W54.8XXD Other contact with dog, subsequent encounter
CPT/HCPCS: 99214; 73110

== ENCOUNTER 2023-06-15 10:53 | Outpatient (CLI) | payer MEDICARE, OTHER, SELFPAY ==
--- NOTE | 2023-06-15 10:34 | DI.RAD_ITS ---
Exam(s) XR WRIST LT COMPLETE EXAM: XR WRIST LT COMPLETE CLINICAL HISTORY: F/U L DISTAL RADIUS FX. TECHNIQUE: 2D digital imaging was performed of the left wrist. Three images were obtained. PA, obl ique and lateral views were obtained. COMPARISON: CR XR WRIST LT COMPLETE from 05/18/2023 FINDINGS: BONES: There is been further distraction of the ulnar styloid process fracture. There does not appea r to be any significant change in alignment of the comminuted intra-articular dorsally angulated frac ture of the distal radius. No bony destructive lesion is seen. JOINTS: The carpal bones are normally aligned. Marked degenerative changes are seen at the 1st carpom etacarpal joint. SOFT TISSUE: Normal. IMPRESSION: Distal radial and ulnar fractures as described. DATA REPOSITORY: RADIATION DOSE DELIVERED:
== END 2023-06-15 10:54 | disposition home or self-care (01) ==
LOC: DIORS 10:53
PROVIDERS: PCP Physician Assistant; Referring Provider Physician Assistant; Visit Provider Student in an Organized Health Care Education/Training Program
DX: S52.502D Unspecified fracture of the lower end of left radius, subsequent encounter for closed fracture with routine healing (principal); S52.612D Displaced fracture of left ulna styloid process, subsequent encounter for closed fracture with routine healing; X58.XXXD Exposure to other specified factors, subsequent encounter; M17.12 Unilateral primary osteoarthritis, left knee
CPT/HCPCS: 20610; 73110; J1040

== ENCOUNTER 2023-07-20 10:32 | Outpatient (CLI) | payer MEDICARE, OTHER, SELFPAY ==
--- NOTE | 2023-07-20 10:15 | DI.RAD_ITS ---
Exam(s) XR WRIST LT COMPLETE EXAM: XR WRIST LT COMPLETE CLINICAL HISTORY: left wrist fx. TECHNIQUE: 2D digital imaging was performed. Three views. COMPARISON: CR XR WRIST LT COMPLETE from 06/15/2023 FINDINGS: There has been no change in the alignment of the distal radial or ulnar styloid fractures. No new fi ndings. DATA REPOSITORY: RADIATION DOSE DELIVERED:
== END 2023-07-20 10:33 | disposition home or self-care (01) ==
LOC: DIORS 10:32
PROVIDERS: PCP Physician Assistant; Referring Provider Physician Assistant; Visit Provider Student in an Organized Health Care Education/Training Program
DX: S52.502D Unspecified fracture of the lower end of left radius, subsequent encounter for closed fracture with routine healing (principal); S52.612D Displaced fracture of left ulna styloid process, subsequent encounter for closed fracture with routine healing; W54.8XXD Other contact with dog, subsequent encounter
CPT/HCPCS: 99213; 73110

== ENCOUNTER → 2023-12-28 01:22 | Outpatient (CLI) | payer MEDICARE, OTHER, SELFPAY ==
--- NOTE | 2023-12-28 15:21 | DI.MAMMO_ITS ---
Exam(s) MAMMO SCREENING EXAM: MAMMO SCREENING CLINICAL HISTORY: SCREENING, Z12.31 TECHNIQUE: Mammograms were interpreted according to the usual protocol including computer analysis w [employer] CAD system, tomosynthesis and C-view imaging. COMPARISON: 2014 through 2022 FINDINGS: The breasts are composed of heterogeneously dense fibroglandular densities, Breast Density category C . There again noted to be multiple bilateral circumscribed nodules found to be cyst on prior ultrasound . No suspicious masses or suspicious microcalcifications are seen. No skin thickening or abnormal axillary lymph nodes are seen. There has been no significant change from prior exams. IMPRESSION: BI-RADS Category 2 - Negative Mammogram with benign findings. Yearly screening mammography is recom mended. Breast Density Category C, heterogeneously Dense. The mammogram demonstrates the patient's breast tissue is dense. Dense breast tissue is very common a nd is not abnormal but dense breast tissue can make it harder to find cancer on a mammogram. Also, de nse breast tissue may increase breast cancer risk. This information about the result of the mammogram report was provided to the patient to raise their awareness. Use this report when you speak with the patient about their risks for breast cancer, which includes their family history. At that time, you may recommend additional screening tests (Ultrasound or MRI) as they might be useful based on their r isk. A negative radiographic report should not delay biopsy if a dominant or clinically suspicious mass is present. Up to ten percent of cancers are not identified on mammography. A negative report may reinforce clinical impression. Adenosis and dense breasts may obscure an underlying neoplasm. False positive reports average 6 to 10%.
== END ==
PROVIDERS: PCP Physician Assistant; Visit Provider Family Medicine
DX: Z12.31 Encounter for screening mammogram for malignant neoplasm of breast (principal)
CPT/HCPCS: 77063; 77067

== ENCOUNTER 2024-01-22 13:31 | Outpatient (REF) | payer MEDICARE, OTHER, SELFPAY ==
[2024-01-22 15:36] LABS: ALT 22 U/L (14-59); AST 17 U/L (15-37); Albumin 3.7 g/dL (3.4-5.0); Alkaline Phosphatase 116 U/L (46-116); BUN 16 mg/dL (7-18); Bilirubin, Total 0.3 mg/dL (0.2-1.0); CREATININE 1.1 mg/dL (0.55-1.02); Calcium 8.9 mg/dL (8.5-10.1); Chloride 103 mmol/L (98-107); Estimated GFR 53.72 (mL/min/1.73m2); Glucose 94 mg/dL (74-106); Potassium 4.2 mmol/L (3.5-5.1); Sodium 141 mmol/L (136-145)
[2024-01-22 16:23] LABS: Influenza A PCR Negative (Negative); Influenza B PCR Negative (Negative); RSV PCR Negative (Negative)
[2024-01-22 16:27] LABS: COVID-19 PCR Positive (Negative); Source NASOPHARYNX
== END 2024-01-22 13:32 | disposition home or self-care (01) ==
LOC: LBN 13:31
PROVIDERS: PCP Physician Assistant; Visit Provider Nurse Practitioner Family
DX: U07.1 COVID-19 (principal)
CPT/HCPCS: 80053; 87637

== ENCOUNTER 2024-08-20 10:09 | Outpatient (REF) | payer MEDICARE, OTHER, SELFPAY ==
[2024-08-20 15:38] LABS: HCT 39.4 % (36.0-46.0); MCH 29.9 pg (27.0-33.0); MCV 91 fL (80-95); MPV 10.1 fL (8.0-11.0); Platelet Count 268 10^3/uL (130-400); RBC 4.35 10^6/uL (3.93-5.22); RDW 12.6 % (11.7-14.6); RDW-SD 42.1 fL; WBC 5.87 10^3/uL (4.4-10.8)
[2024-08-20 16:15] LABS: ALT 19 U/L (14-59); AST 15 U/L (15-37); Albumin 3.7 g/dL (3.4-5.0); Alkaline Phosphatase 116 U/L (46-116); BUN 16 mg/dL (7-18); Bilirubin, Total 0.61 mg/dL (0.2-1.0); CREATININE 0.9 mg/dL (0.55-1.02); Calculated LDL 160 mg/dL (<100); Chloride 105 mmol/L (98-107); Cholesterol 252 mg/dL (<200); Estimated GFR 68.35 (mL/min/1.73m2); Glucose 103 mg/dL (74-106); HDL Cholesterol 72 mg/dL (40-60); Potassium 4.1 mmol/L (3.5-5.1); Sodium 141 mmol/L (136-145); Total Protein 7.5 g/dL (6.4-8.2); Triglyceride 101 mg/dL (<150)
== END 2024-08-20 10:10 | disposition home or self-care (01) ==
LOC: NCHCN 10:09
PROVIDERS: PCP Physician Assistant; Visit Provider Physician Assistant
DX: I10 Essential (primary) hypertension (principal)
CPT/HCPCS: 80053; 80061; 85027

== ENCOUNTER 2024-11-06 02:56 | Outpatient (CLI) | payer MEDICARE, OTHER, SELFPAY ==
--- NOTE | 2024-11-06 | DI.DEXA_ITS ---
Exam(s) XR DEXA BONE DENSITY W/WO SUDHAKAR EXAM: XR DEXA BONE DENSITY W/WO SUDHAKAR CLINICAL HISTORY: [id number] Asymptomatic menopausal,SCREENING FOR OSTEOPOROSIS TECHNIQUE: [employer] C densitometer analysis of left hip, lumbar spine and left forearm. Lat eral survey image of the thoracic and lumbar spine. COMPARISON: CR XR DEXA BONE DENSITY W/WO SUDHAKAR from 11/06/2019 FINDINGS: Lateral view of the thoracic and lumbar spine shows no evidence of compression fractures. Bone mineral density measurements of the lumbar spine correspond to a total T-score of -1.3, in the osteopenic range. This represents an 8.7 percent increase from 2020. There has been further coarsen ing of the degenerative changes at L3-4 which could contribute to this increase. Bone mineral density measurements of the left hip correspond to a total T-score of -2.3. This repre sents a 10.9 percent decrease from 2020. The femoral neck T-score is -2.7, in the osteoporotic rang e. Theleft forearm bone mineral density measurements correspond to a T-score of the distal 3rd of -3.9, in the osteoporotic range. This represents a 10.8 percent decrease from 2020. IMPRESSION: Osteopenia of the spine. Osteoporosis of the hip and wrist.
== END 2024-11-06 03:16 ==
LOC: DI 02:56
PROVIDERS: PCP Physician Assistant; Visit Provider Physician Assistant
DX: Z78.0 Asymptomatic menopausal state (principal); Z13.820 Encounter for screening for osteoporosis; M81.0 Age-related osteoporosis without current pathological fracture
CPT/HCPCS: 77080

== ENCOUNTER 2025-04-13 01:26 | Outpatient (CLI) | payer MEDICARE, OTHER, SELFPAY ==
--- NOTE | 2025-04-13 15:38 | DI.MAMMO_ITS ---
Exam(s) MAMMO SCREENING EXAM: MAMMO SCREENING CLINICAL HISTORY: Screening Z12.31 TECHNIQUE: Mammograms were interpreted according to the usual protocol including computer analysis with CAD system, tomosynthesis and C-view imaging. COMPARISON: 2015 through 2023 FINDINGS: The breasts are composed of heterogeneously dense fibroglandular densities, Breast Density category C. No suspicious masses or suspicious microcalcifications are seen. Multiple bilateral circumscribed nodules are again noted. No skin thickening or abnormal axillary lymph nodes are seen. There has been no significant change from prior exams. IMPRESSION: BI-RADS Category 2 - Negative Mammogram with benign findings. Yearly screening mammography is recommended. Breast Density: Category C - The breasts are heterogeneously dense, which may obscure small masses. Breast density Category C or D implies that the patient has dense breast tissue. Dense breast tissue can make it harder to find cancer on a mammogram. Dense breast tissue is also associated with an increased risk of breast cancer. This information about the result of the mammogram report was provided to the patient to raise their awareness. Use this report when you speak with the patient about their risks for breast cancer, which includes their family history. At that time, you may recommend additional screening tests (Ultrasound or MRI) as these tests may add significant information. A negative radiographic report should not delay biopsy if a dominant or clinically suspicious mass is present. Up to ten percent of cancers are not identified on mammography. A negative report may reinforce clinical impression. Adenosis and dense breasts may obscure an underlying neoplasm. False positive reports average 6 to 10%.
== END 2025-04-13 01:46 ==
PROVIDERS: PCP Physician Assistant; Visit Provider Physician Assistant
DX: Z12.31 Encounter for screening mammogram for malignant neoplasm of breast (principal); R92.333 Mammographic heterogeneous density, bilateral breasts
CPT/HCPCS: 77063; 77067

== ENCOUNTER 2025-08-31 08:53 | Outpatient (REF) | payer MEDICARE, OTHER, SELFPAY ==
[2025-08-31 15:36] LABS: Anion Gap 6.6 mmol/L (3-11); BUN 18 mg/dL (9-23); CO2 32.4 mmol/L (20.0-31.0); Calcium 8.6 mg/dL (8.3-10.6); Chloride 105 mmol/L (98-107); Cholesterol 239 mg/dL (<200); Glucose 101 mg/dL (74-106); HDL Cholesterol 66 mg/dL (>40); Potassium 3.8 mmol/L (3.5-5.1); Sodium 144 mmol/L (136-145)
== END 2025-08-31 08:54 | disposition home or self-care (01) ==
LOC: NCHCN 08:53
PROVIDERS: PCP Physician Assistant; Visit Provider Physician Assistant
DX: E78.5 Hyperlipidemia, unspecified (principal); I10 Essential (primary) hypertension
CPT/HCPCS: 80048; 80061